=== PATIENT | female | born 1960 | race Caucasian/White ===

== ENCOUNTER → 2018-07-06 | Outpatient (CLI) | payer BC ==
[~2018-07-06] MED LIST: AMLO2.5T78 PO; ATEN50TA PO; HYDR12.58 PO; METF500T24 PO; VALS160T20 PO
== END | disposition home or self-care (01) ==
LOC: LAB 07:49
PROVIDERS: ATTEND Internal Medicine Interventional Cardiology
DX: R93.1 Abnormal findings on diagnostic imaging of heart and coronary circulation (principal); R07.9 Chest pain, unspecified
CPT/HCPCS: 82565; 84520

== ENCOUNTER → 2018-07-10 | Outpatient (CLI) | payer BC ==
[~2018-07-10] MED LIST changes: +IOHEXOL 100 ML ONE; +NITROGLYCERIN AEROSOL (4.9 GM) ONE; +NITROGLYCERIN AEROSOL (4.9 GM) SL ONE; +SOD CHLORIDE 0.9% 100 ML ONE
== END | disposition home or self-care (01) ==
LOC: C/S 08:26
PROVIDERS: ATTEND Internal Medicine Interventional Cardiology
DX: R07.9 Chest pain, unspecified (principal); R94.39 Abnormal result of other cardiovascular function study
CPT/HCPCS: 75571; 75574; Q9967; Z7610

== ENCOUNTER 2018-07-18 07:44 | Day surgery (SDC) | payer BC ==
[~2018-07-18] VITALS: Ht 152.4 cm; Wt 72.7 kg
[~2018-07-18 07:44] MED LIST changes: -IOHEXOL 100 ML ONE; -NITROGLYCERIN AEROSOL (4.9 GM) ONE; -NITROGLYCERIN AEROSOL (4.9 GM) SL ONE; -SOD CHLORIDE 0.9% 100 ML ONE
[2018-07-18 08:20] VITALS: Ht 152.4 cm; Wt 72.7 kg
[2018-07-18 08:26] VITALS: BP 162/98; PULSE 74; RESP 18
[2018-07-18] MEDS ORDERED: FENTAnyl 50 MCG/ML VIAL ONE (08:59)
[2018-07-18] MEDS ORDERED: MIDAZOLAM 1 MG/ML 2 ML INJ ONE ×3 (08:59)
[2018-07-18 09:46] VITALS: BP 136/64; PULSE 70; RESP 18
== END 2018-07-18 10:50 | disposition home or self-care (01) ==
LOC: GIL 07:44
PROVIDERS: ATTEND Internal Medicine Gastroenterology
DX: Z12.11 Encounter for screening for malignant neoplasm of colon (principal); K57.30 Diverticulosis of large intestine without perforation or abscess without bleeding; K64.8 Other hemorrhoids; K21.9 Gastro-esophageal reflux disease without esophagitis; K29.70 Gastritis, unspecified, without bleeding; I10 Essential (primary) hypertension; E11.9 Type 2 diabetes mellitus without complications
CPT/HCPCS: 43239; 45378; 82962; J2250; J3010; Z7610; 88305; 88312